=== PATIENT | female | born 1995 | race Caucasian/White ===

== ENCOUNTER 2025-01-13 17:49 | Inpatient (IN) | payer BC ==
[2025-01-13] MEDS ORDERED: Tranexamic Acid in NACL,ISO-OS 1,000 MG in Premix Bag 1 BAG IV PRN (19:21)
[2025-01-13] MEDS ORDERED: Butorphanol 2 MG/ML SDV IVPUSH PRN (19:21)
[2025-01-13] MEDS ORDERED: Ondansetron 4 MG/2 ML SDV IVPUSH PRN (19:21)
[2025-01-13] MEDS ORDERED: Carboprost Tromethamine 250 MCG/1 mL Vial IM PRN (19:21)
[2025-01-13] MEDS ORDERED: Methylergonovine 0.2 MG/1 ML Amp IM PRN (19:21)
[2025-01-13] MEDS ORDERED: Misoprostol 200 MCG Tab PO PRN (19:21)
[2025-01-13] MEDS ORDERED: Sodium Chloride 0.9% 10 ML Syringe FLUSH PRN (19:21)
[2025-01-13] MEDS ORDERED: Water For Irrigation,Sterile 1,000 ML Container IRR PRN (19:21)
[2025-01-13] MEDS ORDERED: Lidocaine 1% 50 ML MDV INJECT PRN (19:21)
[2025-01-13] MEDS ORDERED: Misoprostol 200 MCG Tab RECTAL PRN (19:21)
[2025-01-13] MEDS ORDERED: Sodium Chloride 0.9% 2.5 ML Syringe FLUSH PRN (19:21)
[2025-01-13] MEDS ORDERED: Sodium Chloride 0.9% 20 ML SDV IV PRN (19:21)
[2025-01-13] MEDS: Lactated Ringers 1,000 ML IV SCH (20:18)
[2025-01-13] MEDS: Ampicillin 2 GM in Sodium Chloride 0.9% 100 ML IV ONE (20:21)
[2025-01-13 20:23] LABS: HEMATOCRIT 35.6 % (37.0-47.0); HEMOGLOBIN 12.3 g/dL (12.0-16.0); MEAN CORPUSCULAR HEMOGLOBIN 32.1 pg (28.0-32.0); MEAN CORPUSCULAR HGB CONC 34.6 g/dL (32.0-36.0); MEAN PLATELET VOLUME 11.2 fL (9.4-12.3); PLATELET COUNT,PLT 238 K/uL (150-400); RED BLOOD CELL COUNT 3.83 M/uL (4.10-5.30); WHITE BLOOD CELL COUNT,WBC 10.27 K/uL (3.9-11.3)
[2025-01-14] MEDS: Ampicillin 1 GM in Sodium Chloride 0.9% 50 ML IV SCH (00:18)
[2025-01-14] MEDS ORDERED: ePHEDrine 50 MG/ML SDV IVPUSH PRN (03:53)
[2025-01-14] MEDS ORDERED: ePHEDrine 50 MG/ML SDV IM PRN (03:53)
[2025-01-14] MEDS ORDERED: Phenylephrine HCl In 0.9% NaCl 1 MG/10 ML Syringe IVPUSH PRN (03:53)
[2025-01-14] MEDS ORDERED: dexmedeTOMIDine HCl 200 MCG/2 ML SDV EPIDUR SCH (04:00)
[2025-01-14] MEDS: Ropivacaine HCl/PF 400 MG in Premix Bag 1 BAG EPIDUR SCH (04:01)
[2025-01-14] MEDS ORDERED: Terbutaline 1 MG/ML SDV SUBCUT PRN (04:25)
[2025-01-14] MEDS: Oxytocin/0.9 % Sodium Chloride 30 UNIT/500 ML BAG IV SCH ×2 (05:31→16:08)
[2025-01-14] MEDS: Phenylephrine HCl In 0.9% NaCl 1 MG/10 ML Syringe ONE (07:29)
[2025-01-14] MEDS: Bupivacaine 0.5% 10 ML SDV INJECT ONE (07:30)
[2025-01-14] MEDS: Ropivacaine HCl/PF 200 ML ONE (07:30)
[2025-01-14] MEDS: Bupivacaine 0.5% 10 ML SDV ONE (07:30)
[2025-01-14] MEDS ORDERED: Simethicone 80 MG Tab.Chew PO PRN (17:00)
[2025-01-14] MEDS ORDERED: diphenhydrAMINE 50 MG Cap PO PRN (17:00)
[2025-01-14] MEDS ORDERED: Lanolin 100% Cream 7 GM Tube TOP PRN (17:00)
[2025-01-14 17:13] LABS: PH,UMBILICAL ARTERIAL 7.296 (7.18-7.38); PH,UMBILICAL VENOUS 7.355 (7.25-7.45)
[2025-01-14] MEDS: Ibuprofen 800 MG Tab PO PRN (18:35)
[2025-01-14] MEDS: Witch Hazel Medicated Pads 40/Jar TOP PRN (20:19)
[2025-01-14] MEDS: Benzocaine/Menthol 20%-0.5% Spray 78 GM Cannister TOP PRN (20:24)
[2025-01-15 06:22] LABS: BASOPHILS ABSOLUTE AUTO 0.04 K/uL (0.00-0.20); BASOPHILS PERCENT AUTO 0.3 % (0.0-1.0); EOSINOPHILS ABSOLUTE AUTO 0.11 K/uL (0.00-0.45); EOSINOPHILS PERCENT AUTO 0.7 % (0.0-6.0); HEMATOCRIT 31.3 % (37.0-47.0); IMMATURE GRAN ABSOLUTE AUTO 0.08 K/uL (0.00-0.05); IMMATURE GRAN PERCENT AUTO 0.5 % (0.0-0.4); LYMPHOCYTES PERCENT AUTO 16.5 % (24.0-44.0); MEAN CORPUSCULAR HEMOGLOBIN 32.8 pg (28.0-32.0); MEAN CORPUSCULAR HGB CONC 35.1 g/dL (32.0-36.0); MEAN CORPUSCULAR VOLUME 93.4 fL (83.0-99.0); MONOCYTES ABSOLUTE AUTO 0.92 K/uL (0.00-0.80); MONOCYTES PERCENT AUTO 5.8 % (0.0-8.0); NEUTROPHILS ABSOLUTE AUTO 12.02 K/uL (1.80-7.70); NEUTROPHILS PERCENT AUTO 76.2 % (41.0-71.0); PLATELET COUNT,PLT 209 K/uL (150-400); RED BLOOD CELL COUNT 3.35 M/uL (4.10-5.30); WHITE BLOOD CELL COUNT,WBC 15.77 K/uL (3.9-11.3)
[2025-01-15] MEDS: Docusate Sodium 100 MG Cap PO PRN (19:54)
[2025-01-15] MEDS: Acetaminophen 500 MG Tab PO PRN (19:54)
== END 2025-01-16 15:00 | disposition home or self-care (01) | DRG 560 ==
LOC: MW.OBCHECK 17:49 → MW.OB 17:49 → MW.OBCHECK 19:20 → MW.OB 19:21 → OBSVTOIN 01-14 17:01 → MW.OB 01-14 23:00
PROVIDERS: ADMIT Obstetrics & Gynecology; ATTEND Obstetrics & Gynecology
PROC: 3E0R3BZ Introduction of Anesthetic Agent into Spinal Canal, Percutaneous Approach (ICD-10-PCS; principal; 2025-01-14)
PROC: 10907ZC Drainage of Amniotic Fluid, Therapeutic from Products of Conception, Via Natural or Artificial Opening (ICD-10-PCS; 2025-01-14)
PROC: 3E0DXGC Introduction of Other Therapeutic Substance into Mouth and Pharynx, External Approach (ICD-10-PCS; 2025-01-14)
PROC: 10E0XZZ Delivery of Products of Conception, External Approach (ICD-10-PCS; 2025-01-14)
DX: O48.0 Post-term pregnancy (principal); O99.344 Other mental disorders complicating childbirth; O41.03X0 Oligohydramnios, third trimester, not applicable or unspecified; O99.820 Streptococcus B carrier state complicating pregnancy; O99.892 Other specified diseases and conditions complicating childbirth; O13.4 Gestational [pregnancy-induced] hypertension without significant proteinuria, complicating childbirth; E66.813 Obesity, class 3; O99.214 Obesity complicating childbirth; O69.81X0 Labor and delivery complicated by cord around neck, without compression, not applicable or unspecified; N13.30 Unspecified hydronephrosis; B95.1 Streptococcus, group B, as the cause of diseases classified elsewhere; O36.8931 Maternal care for other specified fetal problems, third trimester, fetus 1; O98.82 Other maternal infectious and parasitic diseases complicating childbirth; Z3A.40 40 weeks gestation of pregnancy; Z37.0 Single live birth; Z79.899 Other long term (current) drug therapy
CPT/HCPCS: 36415; 51701; 51702; 59025; 59409; 82803; 84112; 85025; 85027; 86592; 86850; 86900; 86901; A9270-GY; J0290; J0665; J2371; J2590; J2795; J3490; J7120